=== PATIENT | female | born 1990 | race African-American/Black ===

== ENCOUNTER 2016-12-29 10:53 | Emergency (ER) | payer OTHER ==
--- NOTE | 2016-12-29 11:10 | PDOC ---
History of Present Illness - General History Source: Patient Exam Limitations: No Limitations - History of Present Illness Initial Comments: 12/29/16 11:25 The patient is a 26 year old female A1 s/p 1 month ago with no significant past medical history who presents to the emergency department with umbilical hernia pain. The patient has a hernia and was told several years ago that she would need to have surgery. She states that the hernia never used to bother her, however recently the hernia is becoming more and more painful. She states that the hernia pops out with walking or prolonged standing. Today while she was running errands she was unable to push the hernia back in so she came to the ED. The patient denies any associated nausea or vomiting. She denies any fevers or chills. <Rianna Jacobson - Last Filed: 12/29/16 14:48> <Salo Amin - Last Filed: 12/29/16 15:20> - General Chief Complaint: Pain, Acute Stated Complaint: ABD PAIN Time Seen by Provider: 12/29/16 11:09 Past History <Rianna Jacobson - Last Filed: 12/29/16 14:48> - Past Medical History Asthma: No Cancer: No Cardiac Disorders: No Diabetes: No GI Disorders: Yes (UMBILICAL HERNIA) Disorders: (ghonorrhea) HTN: No Suicide Attempt (Hx): No Seizures: No Thyroid Disease: No - Reproductive History (#): 3 Para: 1 - Immunization History Immunization Up to Date: Yes - Psycho/Social/Smoking Cessation Hx Anxiety: No Suicidal Ideation: No Smoking Status: Yes Smoking History: Never smoked Have you smoked in the past 12 months: No Number of Cigarettes Smoked Daily: 3 If you are a former smoker, when did you quit?: 2011 Information on smoking cessation initiated: No Hx Alcohol Use: No Drug/Substance Use Hx: No Substance Use Type: None Hx Substance Use Treatment: No <Salo Amin - Last Filed: 12/29/16 15:20> - Past Medical History Allergies/Adverse Reactions: Allergies Allergy/AdvReac Type Severity Reaction Status Date / Time latex Allergy Mild Rash Verified 08/05/16 11:26 Home Medications: Ambulatory Orders Ondansetron [Zofran *Odt*] 8 mg SL TID #30 od.tablet 12/29/16 Oxycodone HCl/Acetaminophen [Percocet 5-325 mg Tablet] 1 - 2 tab PO Q6H #30 tab MDD 6 12/29/16 Review of Systems - Review of Systems Able to Perform ROS?: Yes Comments:: 12/29/16 11:26 GENERAL/CONSTITUTIONAL: No fever or chills. No weakness. HEAD, EYES, EARS, NOSE AND THROAT: No change in vision. No ear pain or discharge. No sore throat. CARDIOVASCULAR: No chest pain or shortness of breath. RESPIRATORY: No cough, wheezing, or hemoptysis. GASTROINTESTINAL: +Abdominal pain. No nausea, vomiting, diarrhea or constipation. GENITOURINARY: No dysuria, frequency, or change in urination. MUSCULOSKELETAL: No joint or muscle swelling or pain. No neck or back pain. SKIN: No rash NEUROLOGIC: No headache, vertigo, loss of consciousness, or change in strength/ sensation. ENDOCRINE: No increased thirst. No abnormal weight change. HEMATOLOGIC/LYMPHATIC: No anemia, easy bleeding, or history of blood clots. ALLERGIC/IMMUNOLOGIC: No hives or skin allergy. <Rianna Jacobson - Last Filed: 12/29/16 14:48> *Physical Exam - Vital Signs Last Vital Signs Temp Pulse Resp BP Pulse Ox 98.4 F 67 20 97/65 100 12/29/16 11:04 12/29/16 11:04 12/29/16 11:04 12/29/16 11:04 12/29/16 11:04 - Physical Exam Comments: 12/29/16 11:26 GENERAL: Awake, alert, and fully oriented, in no acute distress HEAD: No signs of trauma EYES: PERRLA, EOMI, sclera anicteric, conjunctiva clear ENT: Auricles normal inspection, hearing grossly normal, nares patent, oropharynx clear without exudates. Moist mucosa NECK: Normal ROM, supple, no lymphadenopathy, JVD, or masses LUNGS: Breath sounds equal, clear to auscultation bilaterally. No wheezes, and no crackles HEART: Regular rate and rhythm, normal S1 and S2, no murmurs, rubs or gallops ABDOMEN: +Reproducible umbilical hernia. Soft, nontender, normoactive bowel sounds. No guarding, no rebound. EXTREMITIES: Normal range of motion, no edema. No clubbing or cyanosis. No cords, erythema, or tenderness NEUROLOGICAL: Cranial nerves II through XII grossly intact. Normal speech, normal gait SKIN: Warm, Dry, normal turgor, no rashes or lesions noted. <Rianna Jacobson - Last Filed: 12/29/16 14:48> - Vital Signs Last Vital Signs Temp Pulse Resp BP Pulse Ox 98.4 F 67 20 97/65 100 12/29/16 11:04 12/29/16 11:04 12/29/16 11:04 12/29/16 11:04 12/29/16 11:04 <aSlo Amin - Last Filed: 12/29/16 15:20> ED Treatment Course - LABORATORY CBC & Chemistry Diagram: 12/29/16 11:19 12/29/16 11:19 <Rianna Jacobson - Last Filed: 12/29/16 14:48> - LABORATORY CBC & Chemistry Diagram: 12/29/16 11:19 12/29/16 11:19 <Salo Amin - Last Filed: 12/29/16 15:20> Medical Decision Making - Medical Decision Making 12/29/16 14:[address] Juan Ramon Ballesteros (collections officer surgeon). Was told Dr. Angel collections officer. 12/29/16 14:48 Second call placed to Dr. Angel. Awaiting call back. <KavonRianna - Last Filed: 12/29/16 14:48> *DC/Admit/Observation/Transfer - Attestations Scribe Attestion: 12/29/16 11:26 Documentation prepared by Rianna Jacobson, acting as medical massage therapist for Salo Amin DO. <Rianna Jacobson - Last Filed: 12/29/16 14:48> - Attestations Physician Attestion: 12/29/16 11:10 I, Dr. Salo Amin, attest that this document has been prepared under my direction and personally reviewed by me in its entirety. I further attest, that it accurately reflects all work, treatment, procedures and medical decision -making performed by me. <Salo Amin - Last Filed: 12/29/16 15:20> Diagnosis at time of Disposition: Umbilical hernia without obstruction and without gangrene - Prescriptions Prescriptions: Oxycodone HCl/Acetaminophen [Percocet 5-325 mg Tablet] 1 - 2 tab PO Q6H #30 tab MDD 6 Ondansetron [Zofran *Odt*] 8 mg SL TID #30 od.tablet - Referrals Referrals: Jamel Angel MD [Staff Physician] - - Patient Instructions Printed Discharge Instructions: Abdominal Hernia Additional Instructions: Call Dr Juan Ramon Ballesteros or Dr Angel for the surgery
[2016-12-29 11:13] VITALS: TEMP 98.4; BMI 39.0
[2016-12-29] MEDS ORDERED: ONDANSETRON 4 MG/2 ML VIAL ONE (11:13)
[2016-12-29] MEDS ORDERED: ACETAMINOPHEN 500 MG TABLET (FP) PO ONE (11:23)
[2016-12-29 11:38] LABS: BASOPHIL 0.6 % (0-2.0); EOSINOPHIL 0.8 % (0-4.5); NEUTROPHILS 75.7 % (42.8-82.8); PLATELET COUNT 250 K/MM3 (134-434); RDW 15.4 % (11.6-15.6); WHITE BLOOD COUNT 7.2 K/mm3 (4.0-10.0)
[2016-12-29 12:01] LABS: INR 1.08 (0.82-1.09); PROTHROMBIN TIME (PATIENT) 11.9 SEC (9.98-11.88)
[2016-12-29 12:08] LABS: ALBUMIN 3.5 g/dl (3.4-5.0); ANION GAP 6 (8-16); BILIRUBIN,TOTAL 0.3 mg/dL (0.2-1.0); CO2 28 mmol/L (21-32); CREATININE 0.9 mg/dL (0.55-1.02); GLUCOSE,RANDOM 101 mg/dL (74-106); SGOT/AST 15 U/L (15-37); SGPT/ALT 23 U/L (12-78); TOT PROT 7.1 g/dl (6.4-8.2)
[2016-12-29 12:09] LABS: ALK PHOS 87 U/L (45-117)
[2016-12-29] MEDS ORDERED: OXYCODONE/APAP 5/325MG COMBO TABLET ONE (14:18)
[2016-12-29] MEDS ORDERED: OXYCODONE/APAP 5/325MG COMBO TABLET PO ONE (14:22)
[2016-12-29 15:12] VITALS: BP 104/61; PULSE 80
== END 2016-12-29 15:20 | disposition home or self-care (01) ==
LOC: JER 10:53
DX: K42.9 Umbilical hernia without obstruction or gangrene (principal)
CPT/HCPCS: 36415; 74177-TC; 80053; 81003; 83690; 84703; 85025; 85610; 99283-25; Q9967

== ENCOUNTER 2017-01-14 15:42 | Emergency (ER) | payer OTHER ==
[2017-01-14 15:54] VITALS: BP 139/83; PULSE 74; TEMP 98.4; BMI 38.7
--- NOTE | 2017-01-14 16:08 | PDOC ---
History of Present Illness - General History Source: Patient Exam Limitations: No Limitations - History of Present Illness Initial Comments: 01/14/17 17:09 The patient is a 26 year old female(A1), with a significant past medical history of anemia, umbilical hernia, and gonorrhea, who presents to the emergency department complaining of severe abdominal pain secondary to hernia since yesterday afternoon. The patient reports she has a ventral hernia since 2007 that is typically reducible, however since giving to her child about 2 months ago, she has not been able to push it back. The patient describes her hernia as if something were squeezing near her abdomen. The patient reports her pain is exacerbated when walking or standing. The patient reports associated nausea and vomiting, but denies any diarrhea or constipation. She reports she presented to the ED 2-3 weeks ago with a similar pain, during which blood work was obtained The patient reports she is scheduled for a surgery with Dr. Dunham, during the second week of January, however, her pain brought her to come into the ED today. The patient report decreased appetite secondary to pain and being unable to tolerate anything p.o. The patient denies any fever or chills. Allergies: Latex Past Surgical History: Social History: Former smoker. Denies alcohol or drug use. PCP: Dr. Angel Surgeon: Dr. Dunham <Mary Jo Morrow - Last Filed: 01/14/17 17:19> - General History Source: Patient Exam Limitations: No Limitations <Melony Ocampo - Last Filed: 01/17/17 09:54> - General Chief Complaint: Pain, Acute Stated Complaint: ABDOMINAL PAIN Time Seen by Provider: 01/14/17 16:07 Past History <Mary Jo Morrow - Last Filed: 01/14/17 17:19> - Past Medical History Anemia: Yes Asthma: No Cancer: No Cardiac Disorders: No CVA: No COPD: No CHF: No Dementia: No Diabetes: No GI Disorders: Yes (UMBILICAL HERNIA) Disorders: Yes (ghonorrhea) HTN: No Hypercholesterolemia: No Liver Disease: No Suicide Attempt (Hx): No Seizures: No Thyroid Disease: No - Surgical History Abdominal Surgery: No Appendectomy: No Cardiac Surgery: No Cholecystectomy: No Lung Surgery: No Neurologic Surgery: No Orthopedic Surgery: No - Reproductive History (#): 3 Para: 1 - Immunization History Immunization Up to Date: Yes - Psycho/Social/Smoking Cessation Hx Anxiety: No Suicidal Ideation: No Smoking Status: Yes Smoking History: Never smoked Have you smoked in the past 12 months: No Number of Cigarettes Smoked Daily: 3 If you are a former smoker, when did you quit?: 2011 Hx Alcohol Use: No Drug/Substance Use Hx: No Substance Use Type: None Hx Substance Use Treatment: No <Melony Ocampo - Last Filed: 01/17/17 09:54> - Past Medical History Allergies/Adverse Reactions: Allergies Allergy/AdvReac Type Severity Reaction Status Date / Time latex Allergy Mild Rash Verified 01/14/17 15:52 Home Medications: Ambulatory Orders Lidocaine 5% Patch [Lidoderm Patch -] 1 patch TP DAILY PRN #30 patch 01/14/17 NK [No Known Home Medication] 01/14/17 Review of Systems - Review of Systems Able to Perform ROS?: Yes Comments:: 01/14/17 17:09 GENERAL/CONSTITUTIONAL: No: fever, chills, weakness, loss of appetite. HEAD, EYES, EARS, NOSE AND THROAT: No: change in vision, ear pain, discharge, sore throat, throat swelling. CARDIOVASCULAR: No: chest pain, lightheadedness, palpitations, syncope RESPIRATORY: No: cough, shortness of breath, wheezing, hemoptysis, stridor. GASTROINTESTINAL: Yes: +abdominal pain, +nausea, +vomiting. No: diarrhea, rectal bleeding, constipation. GENITOURINARY: No: dysuria, hematuria, frequency, urgency, flank pain. MUSCULOSKELETAL: No: back pain, neck pain, joint pain, muscle swelling or pain SKIN AND BREASTS: No: lesions, pallor, rash or easy bruising. NEUROLOGIC: No: headache, vertigo, paresthesias, weakness ENDOCRINE: No: unexplained weight gain or loss HEMATOLOGIC/LYMPHATIC: No: anemia, easy bleeding, swelling nodes <Morrow,Giomilsy - Last Filed: 01/14/17 17:19> *Physical Exam - Vital Signs Last Vital Signs Temp Pulse Resp BP Pulse Ox 98.4 F 74 18 139/83 100 01/14/17 15:52 01/14/17 15:52 01/14/17 15:52 01/14/17 15:52 01/14/17 15:52 - Physical Exam Comments: 01/14/17 17:10 GENERAL: Patient appears uncomfortable and tearful.. HEAD: Normal with no signs of trauma. EYES: PERRLA, EOMI, sclera anicteric, conjunctiva clear. ENT: Ears normal, nares patent, oropharynx clear without exudates. Moist mucous membranes. NECK: Normal range of motion, supple without lymphadenopathy, JVD, or masses. LUNGS: Breath sounds equal, clear to auscultation bilaterally. No wheezes, and no crackles. HEART: Regular rate and rhythm, normal S1 and S2 without murmur, rub or gallop. ABDOMEN: Incarcerated hernia. Very tender to palpation. Soft, normoactive bowel sounds. No guarding, no rebound. EXTREMITIES: Normal range of motion, no edema. No clubbing or cyanosis. No erythema, or tenderness. NEUROLOGICAL: Cranial nerves II through XII grossly intact. Normal speech. No focal neurological deficits. MUSCULOSKELETAL: Back non-tender to palpation, no CVA tenderness SKIN: Warm, Dry, normal turgor, no rashes or lesions noted. <Mary Jo Morrow - Last Filed: 01/14/17 17:19> - Vital Signs Last Vital Signs Temp Pulse Resp BP Pulse Ox 98.4 F 74 18 139/83 100 01/14/17 15:52 01/14/17 15:52 01/14/17 15:52 01/14/17 15:52 01/14/17 15:52 <Melony Ocampo - Last Filed: 01/17/17 09:54> ED Treatment Course - LABORATORY CBC & Chemistry Diagram: 01/14/17 16:50 01/14/17 16:50 - ADDITIONAL ORDERS Additional order review: 01/14/17 16:50 RBC 4.42 MCV 85.3 MCHC 31.5 L RDW 15.9 H MPV 8.5 Neutrophils % 89.2 H Lymphocytes % 7.4 L D Monocytes % 2.6 L Eosinophils % 0.7 Basophils % 0.1 - Medications Given in the ED: ED Medications Discontinued Medications Generic Name Dose Route Start Last Admin Trade Name Freq PRN Reason Stop Dose Admin Hydromorphone HCl 1 mg 01/14/17 16:38 01/14/17 16:52 Dilaudid Injection - IVPB 01/14/17 16:39 1 mg NOW ONE Administration <Mary Jo Morrow - Last Filed: 01/14/17 17:19> - LABORATORY CBC & Chemistry Diagram: 01/14/17 16:50 01/14/17 16:50 <Melony Ocampo - Last Filed: 01/17/17 09:54> Medical Decision Making - Medical Decision Making 01/14/17 16:08 A portion of this note was documented by scribe services under my direction. I have reviewed the details of the note, within reason, and agree with the documentation with the following case summary and management plan written by me. Nursing documentation reviewed and incorporated into medical decision making 01/14/17 16:40 This is a 26-year-old female with a history of ventral hernia who presents to the emergency department with a complaint of severe pain at the site of her hernia. Patient states she has a history of a ventral hernia which is typically reducible. Beginning yesterday her hernia has been non reducible No fevers or chills (+) nausea and vomiting 01/14/17 16:[address] Roly Armenta states, patient should be given versed to relax her and help the hernia reduce Pt will need to have CT of the abdomen and pelvis Will re assess Pt states she was at [facility] yesterday, had a CT which demonstrated fat containing hernia Pt frustrated that she has not already had her surgery Call placed to Dr Roly Armenta states, pt is scheduled for the OR on 01/17 Pt states the hernia self reduced she feels a bit better Will discharge to home pt asked to take Tylenol with codein for pain and try to wear an abdominal girdle Return to the ER for any other concerns or complaints <Melony Ocampo - Last Filed: 01/17/17 09:54> *DC/Admit/Observation/Transfer - Attestations Scribe Attestion: 01/14/17 17:10 Documentation prepared by Mary Jo Morrow, acting as mobile paramedical examiner for Melony Ocampo MD. <Mary Jo Morrow - Last Filed: 01/14/17 17:19> - Discharge Dispostion Admit: No <Melony Ocampo - Last Filed: 01/17/17 09:54> Diagnosis at time of Disposition: Ventral hernia Qualifiers: Obstruction and gangrene presence: without obstruction or gangrene Qualified Code(s): K43.9 - Ventral hernia without obstruction or gangrene - Discharge Dispostion Disposition: HOME Condition at time of disposition: Stable - Prescriptions Prescriptions: Lidocaine 5% Patch [Lidoderm Patch -] 1 patch TP DAILY PRN #30 patch PRN Reason: Pain - Referrals Referrals: Sobeida Chavez MD [Primary Care Provider] - Aguila Dunham MD [Staff Physician] - - Patient Instructions Printed Discharge Instructions: DI for Ventral Hernia Additional Instructions: Please take Tylenol #3 for pain Please take benadry as needed for pain You can also use lidoderm patches for pain YOUR SURGERY IS IN 3 DAYS
[2017-01-14] MEDS ORDERED: ACETAMINOPHEN INJECTION 0 ML IVPB ONE (16:55)
[2017-01-14 17:00] LABS: BASOPHIL 0.1 % (0-2.0); EOSINOPHIL 0.7 % (0-4.5); MCH 26.8 pg (25.7-33.7); MCHC 31.5 g/dl (32.0-36.0); MEAN CELL VOLUME 85.3 fl (80-96); MEAN PLT VOLUME 8.5 fl (7.5-11.1); NEUTROPHILS 89.2 % (42.8-82.8); PLATELET COUNT 268 K/MM3 (134-434); RDW 15.9 % (11.6-15.6); WHITE BLOOD COUNT 10.7 K/mm3 (4.0-10.0)
[2017-01-14 17:16] LABS: URINE APPEARANCE CLEAR; URINE BILIRUBIN NEGATIVE (NEGATIVE); URINE BLOOD NEGATIVE (NEGATIVE); URINE COLOR YELLOW; URINE GLUCOSE (UA) NEGATIVE (NEGATIVE); URINE KETONE NEGATIVE (NEGATIVE); URINE NITRITE NEGATIVE (NEGATIVE); URINE PROTEIN NEGATIVE (NEGATIVE); URINE UROBILINOGEN NEGATIVE E.U./dl (0.2-1.0)
[2017-01-14 17:21] LABS: URINE LEUK ESTERASE TRACE (NEGATIVE)
[2017-01-14 17:22] LABS: URINE HYALINE CAST 1 /lpf; URINE MUCUS FEW; URINE RBC 1 /hpf (0-3); URINE WBC 2 /hpf (3-5)
[2017-01-14 17:28] LABS: ALBUMIN 4.1 g/dl (3.4-5.0); ALK PHOS 82 U/L (45-117); ANION GAP 12 (8-16); BILIRUBIN,TOTAL 0.7 mg/dL (0.2-1.0); CO2 25 mmol/L (21-32); GLUCOSE,RANDOM 96 mg/dL (74-106); SGOT/AST 11 U/L (15-37); SGPT/ALT 22 U/L (12-78); TOT PROT 7.9 g/dl (6.4-8.2)
[2017-01-14] MEDS: HYDROmorphone HCL CARPU-JECT 1 MG/1 ML DISP.SYRIN IVPB ONE ×2 (17:34→18:45)
[2017-01-14] MEDS: ACETAMINOPHEN 1000 MG/100 ML VIAL (NON FORMULARY) IVPB ONE ×2 (17:34→17:40)
[2017-01-14] MEDS ORDERED: HYDROmorphone HCL CARPU-JECT 1 MG/1 ML DISP.SYRIN ONE (17:35)
[2017-01-14] MEDS ORDERED: diphenhydrAMINE HCL 25 MG CAPSULE (FP) PO ONE (18:21)
== END 2017-01-14 19:50 | disposition home or self-care (01) ==
LOC: JER 15:42
PROC: 3E033GC Introduction of Other Therapeutic Substance into Peripheral Vein, Percutaneous Approach (ICD-10-PCS; principal; 2017-01-14)
DX: K43.9 Ventral hernia without obstruction or gangrene (principal); Z86.2 Personal history of diseases of the blood and blood-forming organs and certain disorders involving the immune mechanism
CPT/HCPCS: 36415; 80053; 81003; 81015; 83605; 84703; 85025; 87086; 96374; 99283-25

== ENCOUNTER 2017-01-17 11:04 | Day surgery (SDC) | payer OTHER ==
[2017-01-12 19:16] VITALS: BMI 41.6
[2017-01-17] MEDS ORDERED: SUCCINYLCHOLINE CHLORIDE 200 MG/10 ML VIAL ONE (12:36)
[2017-01-17] MEDS ORDERED: PROPOFOL 20 ML ONE ×2 (12:36)
[2017-01-17] MEDS ORDERED: MIDAZOLAM HCL 2 MG/2 ML SINGLE DOSE VIAL ONE (12:37)
[2017-01-17] MEDS ORDERED: ROCURONIUM BROMIDE 50 MG/5 ML VIAL ONE ×2 (12:37→14:11)
--- NOTE | 2017-01-17 12:44 | HP ---
History & Physical Update - History History: No Change - Physical Physical: No Change - Assessment Assessment: No Change - Plan Plan: No Change
[2017-01-17] MEDS ORDERED: ceFAZolin SODIUM 1 GM VIAL ONE (13:14)
[2017-01-17] MEDS ORDERED: ceFAZolin SODIUM 1 GM VIAL IVPB ONE (13:18)
[2017-01-17] MEDS ORDERED: KETOROLAC TROMETHAMINE 30 MG/1 ML VIAL ONE (13:19)
[2017-01-17] MEDS ORDERED: DEXAMETHASONE SOD PHOSPHATE 4 MG/1 ML VIAL ONE (13:19)
[2017-01-17] MEDS ORDERED: ePHEDrine SULFATE 50 MG/1 ML AMPULE ONE (13:20)
[2017-01-17] MEDS ORDERED: BUPIVACAINE HCL/PF 0.5% (5MG/ML) 10 ML VIAL IJ ONE (14:36)
[2017-01-17] MEDS ORDERED: METOPROLOL TARTRATE 5 MG/5 ML VIAL ONE (15:03)
[2017-01-17] MEDS ORDERED: NEOSTIGMINE METHYLSULFATE 0.5 MG/ML - 10 ML MDV ONE (15:48)
[2017-01-17] MEDS ORDERED: GLYCOPYRROLATE 0.2 MG/1 ML VIAL ONE (15:49)
[2017-01-17] MEDS ORDERED: PROMETHAZINE HCL 25 MG/1 ML VIAL IVPUSH PRN (17:19)
[2017-01-17] MEDS ORDERED: oxyCODONE HCL 5 MG TABLET PO PRN ×3 (17:19→17:30)
[2017-01-17] MEDS ORDERED: ACETAMINOPHEN 1000 MG/100 ML VIAL (NON FORMULARY) IVPB ONE (17:19)
--- NOTE | 2017-01-17 17:28 | OP ---
Operative Note - Note: Operative Date: 01/17/17 Pre-Operative Diagnosis: ventral hernia Operation: Robotic laparoscopic ventral hernia repair with mesh Post-Operative Diagnosis: Same as Pre-op Surgeon: Aguila Dunham Ethylene Plant Operator: Laura Dick Anesthesiologist/RECEPTION: Hafsa Champagne Anesthesia: General Estimated Blood Loss (mls): 100 Fluid Volume Replaced (mls): 1,800 Operative Report Dictated: Yes
--- NOTE | 2017-01-17 17:29 | SURG ---
Surgery Metal Stud Framer Note Metal Stud Framer: Laura Dick PA-C Date of Service: 01/17/17 Diagnosis: ventral hernia Procedure: Robotic laparoscopic ventral hernia repair with mesh I was present for the entirety of the operative procedure. For further detail, please refer to operative report. Visit type - Case Type Case Type: Scheduled Admission - Emergency Emergency Visit: No - New patient This patient is new to me today: Yes Date on this admission: 01/17/17 - Critical Care Critical Care patient: No
[2017-01-17] MEDS ORDERED: ONDANSETRON 4 MG/2 ML VIAL IVPB PRN (17:30)
[2017-01-17] MEDS ORDERED: LACTATED RINGERS SOLUTION 1,000 ML IV SCH (17:30)
[2017-01-17] MEDS ORDERED: ACETAMINOPHEN INJECTION 100 ML IVPB ONE (17:39)
[2017-01-17] MEDS: HYDROmorphone HCL CARPU-JECT 1 MG/1 ML DISP.SYRIN IVPUSH PRN ×2 (18:15→18:25)
[2017-01-17] MEDS ORDERED: HYDROmorphone HCL CARPU-JECT 2 MG/1 ML DISP.SYRIN ONE (18:20)
[2017-01-17] MEDS ORDERED: PROMETHAZINE HCL 25 MG/1 ML VIAL IVPB PRN (22:30)
[2017-01-17] MEDS ORDERED: ONDANSETRON 4 MG/2 ML VIAL IVPUSH PRN (22:30)
[2017-01-17] MEDS ORDERED: HYDROmorphone *PCA* 10MG/50ML DISP.SYRIN PCA SCH ×2 (22:30→23:15)
[2017-01-18] MEDS: ACETAMINOPHEN 325 MG TABLET (FP) PO PRN ×2 (01:37→10:42)
[2017-01-18 08:25] VITALS: BP 102/60; PULSE 71; TEMP 98.4
--- NOTE | 2017-01-18 08:30 | PN ---
Progress Note (short form) - Note Progress Note: POD #1 - s/p robotic ventral hernia repair under general anesthesia with dilaudid AUTOMATIC DATA PROCESSING PLANNER for postop pain management. Pt. doing well, resting comfortably in bed. No complaints. Good pain control. Pt. to be discharged later today, so will discontinue AUTOMATIC DATA PROCESSING PLANNER and order oxycodone for further pain control.
--- NOTE | 2017-01-18 09:18 | PN ---
Progress Note (short form) - Note Progress Note: Patient seen and examined. Patient states she had pain overnight and did not understand to use her POULTRY PROCESSOR. She has not had much oral intake yet. She has been OOB, is urinating without issue, and passing gas. She denies fever, chills, nausea, vomiting. Last Vital Signs Temp Pulse Resp BP Pulse Ox 98.4 F 71 20 102/60 98 01/18/17 08:00 01/18/17 08:06 01/18/17 08:06 01/18/17 08:06 01/17/17 20:03 Exam: Gen: NAD Cardio: RRR Resp: CTA Abd: soft, nondistended, tender to palp at port sites, incisions clean/dry/ intact with Dermabond Problem List - Problems (1) Ventral hernia Assessment/Plan: POD#1 s/p robotic laparoscopic ventral hernia repair with mesh Patient will have clears now, advance diet as tolerated Pain control- DC POULTRY PROCESSOR, Ofirmev 1000mg IV now, Oxycodone 5 or 10mg PRN, will be sent home with Rx for Percocet OOB/Ambulate Code(s): K43.9 - VENTRAL HERNIA WITHOUT OBSTRUCTION OR GANGRENE Qualifiers: Obstruction and gangrene presence: without obstruction or gangrene Qualified Code(s): K43.9 - Ventral hernia without obstruction or gangrene
[2017-01-18] MEDS: ACETAMINOPHEN 1000 MG/100 ML VIAL (NON FORMULARY) IVPB ONE ×2 (10:31→10:38)
--- NOTE | 2017-01-18 18:15 | OP ---
DATE OF OPERATION: 01/17/2017 PROCEDURE: Robotic assisted laparoscopic ventral hernia repair with mesh. PREOPERATIVE DIAGNOSIS: Umbilical hernia. POSTOPERATIVE DIAGNOSIS: Multiple ventral hernias (umbilical and epigastric hernias). SURGEON: Aguila Dunham M.D. CAMPUS ADMINISTRATOR: Christopher Avilez ANESTHESIA: General endotracheal anesthesia. FINDINGS AND PROCEDURE: This is a 26-year-old female presents with chronic intermittent abdominal pain from a chronically incarcerated umbilical hernia. On physical exam, patient has 4/4 nonreducible bulge just above the umbilicus with mild tenderness. Patient had multiple visits to the emergency department due to pain , and preoperative CT scan of the abdomen and pelvis revealed ventral hernia containing incarcerated preperitoneal fat. So patient was advised elective repair of the hernia, and consent was obtained after discussing the risks, benefits, and alternatives to the procedure. Patient was brought to the operating room and placed in supine position. General endotracheal anesthesia was administered. The abdomen was prepped and draped in the usual sterile fashion. A roll was then placed in the patient's left flank. Using 0.5% Marcaine, local anesthesia was administered to the proposed incision sites. The peritoneal cavity was entered via an 8-mm incision at the left subcostal region of the anterior axillary line. Using the Veress needle technique, pneumoperitoneum was established. This was followed by insertion of 8-mm port, and insertion of the 30-degree, 3-D laparoscope. Peritoneal cavity was carefully inspected and was noted to be free inadvertent injury. The patient was then slightly tilted to the right side, and the patient was noted to have 2 hernias, 1 at the umbilicus (3 cm) and 1 at the epigastric region (4 cm). The epigastric hernia contained partially incarcerated omentum. Two 8-mm ports were inserted, one at the level of the umbilicus at the posterior axillary line, and one at the left lower quadrant at the level of anterior axillary line, about 8 mm away from each other. The scope was then transferred to the middle port. The target organ was set, and the robotic arms were docked. A fenestrated bipolar forceps was inserted at the left lower quadrant port, and the wrist juan connected to monopolar cautery was inserted at the left upper quadrant and left subcostal port. At this time, I scrubbed out and commenced the console part of the procedure. The parietal peritoneum was scored at about 5 cm away from the umbilical hernia defect, and extended superiorly towards the falciform ligament and inferiorly towards about 5 cm away from below the umbilical defect. Peritoneal pocket was made and during the procedure due to the patient's very thin parietal peritoneum, multiple tears of the peritoneum was created. This dissection was carried laterally towards the other side of the midline, about 5 cm from the defects. Superiorly the incarcerated preperitoneal fat was taken down, for both umbilical and epigastric hernias. The umbilical area was noted to contain multiple small defects, about 2 of them around the umbilicus. After the incarcerated preperitoneal fat was taken down, the defects were closed with continuous V-Loc number 1 nonabsorbable sutures, to include partial apposition of the diastasis recti. Two Progrip meshes, one 10 x 15 and one 9 x 10 cm meshes were deployed, the 10 x 15 was deployed towards the epigastric hernia, and the 10 x 9 cm mesh was deployed at the level of the umbilicus, with the 2 meshes overlapping each other in the middle in between the 2 defects. After deployment was deemed satisfactory, the parietal peritoneum was then closed with continuos V-Loc 2-0 absorbable sutures. The multiple defects were also closed with V-Loc 2-0 absorbable sutures to close the parietal peritoneum and cover the mesh to avoid exposure to the small bowel. The bleeding, which was about 100 cc, was suctioned at the gutter , the right perihepatic gutter, as well as the pelvis. After it was determined that the repair was satisfactory and no active bleeding or inadvertent bowel injury existed, the instruments were removed and the robotic arms were undocked. The pneumoperitoneum was evacuated, and the ports were removed. The wounds were closed with subcuticular Biosyn 4-0 sutures. An abdominal binder was applied. Patient was successfully extubated and transferred to the post anesthesia care unit in satisfactory condition. Estimated blood loss was about 100 mL. Wound class clean. The patient received 2 g of Ancef prior to the start of the procedure. Pinky [id number] MTDD
== END 2017-01-18 01:45 | disposition home or self-care (01) ==
LOC: JASU-SURG 11:04 → J6S 19:58 → JASU-SURG 01-18 01:45
PROVIDERS: ATTEND Surgery
PROC: 0WUF4JZ Supplement Abdominal Wall with Synthetic Substitute, Percutaneous Endoscopic Approach (ICD-10-PCS; principal; 2017-01-17 12:30)
DX: K43.9 Ventral hernia without obstruction or gangrene (principal)
CPT/HCPCS: 49652; S2900; 84703; 94760

== ENCOUNTER 2018-07-18 17:14 | Emergency (ER) | payer OTHER ==
--- NOTE | 2018-07-18 17:22 | PDOC ---
Rapid Medical Evaluation Time Seen by Provider: 07/18/18 17:20 Medical Evaluation: Allergies Allergy/AdvReac Type Severity Reaction Status Date / Time latex Allergy Mild Rash Verified 01/17/17 11:47 07/18/18 17:20 I have performed a brief in-person evaluation of this patient. The patient presents with a chief complaint of:vaginal discharge, vaginal itching , no bleeding Pertinent physical exam findings:none I have ordered the following:urine preg, UA, The patient will proceed to the ED for further evaluation.
[2018-07-18 17:24] VITALS: BP 109/62; PULSE 73; TEMP 98.3; BMI 32.3
--- NOTE | 2018-07-18 17:42 | PDOC ---
History of Present Illness <Nilesh Lewis - Last Filed: 07/18/18 21:11> - General History Source: Patient Exam Limitations: No Limitations - History of Present Illness Travel History: No Initial Comments: 07/18/18 18:30 Patient came for evaluation of persistent vaginal drainage and itching. was treated for bacterial vaginosis a few weeks ago but did not complete the course of MetroGel, or Monistat to treat presumed yeast infection in addition. Patient states has continued her unprotected sexual activity with same partner who has not complained of any drainage, testicular pain, or lesions. Has never had a sexually transmitted disease including gonorrhea, chlamydia, or herpes. Is uncertain as to her status area has requested HIV and STD testing here and will complete a beta hCG as she states multiple episodes of that was undetected with urine hCG evaluation. Timing/Duration: reports: constant, getting worse Quality: reports: moderate Abdominal Pain Onset Location: reports: suprapubic Pain Radiation: reports: no radiation Alleviating Factors: improves with: None <Sofía Zaman - Last Filed: 07/19/18 16:53> - General Chief Complaint: Vaginal Sxs Stated Complaint: VAGINAL SXS Time Seen by Provider: 07/18/18 17:20 Past History <Nilesh Lewis - Last Filed: 07/18/18 21:11> - Travel Traveled outside of the country in the last 30 days: No Close contact w/someone who was outside of country & ill: No - Past Medical History Anemia: Yes Asthma: No Cancer: No Cardiac Disorders: No CVA: No COPD: No CHF: No Dementia: No Diabetes: No GI Disorders: Yes (UMBILICAL HERNIA) Disorders: Yes (ghonorrhea) HTN: No Hypercholesterolemia: No Liver Disease: No Seizures: No Thyroid Disease: No - Surgical History Abdominal Surgery: No Appendectomy: No Cardiac Surgery: No Cholecystectomy: No Lung Surgery: No Neurologic Surgery: No Orthopedic Surgery: No - Reproductive History (#): 3 Para: 1 - Immunization History Immunization Up to Date: Yes - Suicide/Smoking/Psychosocial Hx Smoking Status: Yes Smoking History: Never smoked Have you smoked in the past 12 months: No Number of Cigarettes Smoked Daily: 3 If you are a former smoker, when did you quit?: 2011 Information on smoking cessation initiated: Yes 'Breaking Loose' booklet given: 07/18/18 Hx Alcohol Use: No Drug/Substance Use Hx: No Substance Use Type: None Hx Substance Use Treatment: No <Sofía Zaman - Last Filed: 07/19/18 16:53> - Past Medical History Allergies/Adverse Reactions: Allergies Allergy/AdvReac Type Severity Reaction Status Date / Time latex Allergy Mild Rash Verified 07/18/18 17:24 Home Medications: Ambulatory Orders metroNIDAZOLE 0.75% VAG. GEL [Metrogel 0.75% *Vaginal Gel* -] 1 applic VG HS #1 tube 07/18/18 Abd/GI Specific PMHX - Complaint Specific PMHX Colitis: No Diverticulitis: No Gall Bladder Disease: No GERD: No Hepatitis: No Irritable Bowel Synd (IBS): No Pancreatitis: No GI Ulcer Disease: No <Sofía Zaman - Last Filed: 07/19/18 16:53> Review of Systems - Review of Systems Able to Perform ROS?: Yes Is the patient limited Telugu proficient: Yes Constitutional: Yes: See HPI. No: Symptoms Reported, Chills, Fever, Malaise HEENTM: Yes: See HPI. No: Symptoms Reported ABD/GI: Yes: Symptoms Reported, See HPI, Abdominal cramping. No: Nausea, Vomiting : Yes: Symptoms Reported, See HPI, Burning, Discharge (thin whitish foul- smelling/fishy odor discharge, consistent with same type of discharge experienced with bacterial vaginosis and she did not complete course of treatment). No: Frequency Musculoskeletal: No: Symptoms Reported Integumentary: Yes: Symptoms Reported, See HPI, Erythema, Pruritus, Rash Neurological: No: Symptoms reported Psychiatric: No: Anxiety All Other Systems: Reviewed and Negative <Sofía Zaman - Last Filed: 07/19/18 16:53> *Physical Exam - Vital Signs Last Vital Signs Temp Pulse Resp BP Pulse Ox 98.3 F 73 17 109/62 100 07/18/18 17:21 07/18/18 17:21 07/18/18 17:21 07/18/18 17:21 07/18/18 17:21 <Nilesh Lewis - Last Filed: 07/18/18 21:11> - Vital Signs Last Vital Signs Temp Pulse Resp BP Pulse Ox 98.3 F 73 17 109/62 100 07/18/18 17:21 07/18/18 17:21 07/18/18 17:21 07/18/18 17:21 07/18/18 17:21 - Physical Exam General Appearance: Yes: Nourished, Appropriately Dressed, Apparent Distress, Mild Distress HEENT: positive: SHARON, Normal ENT Inspection, TMs Normal, Pharynx Normal Neck: positive: Supple. negative: Tender, Lymphadenopathy (R), Lymphadenopathy (L) Respiratory/Chest: positive: Lungs Clear, Normal Breath Sounds Female Pelvic Exam: positive: normal external exam, discharge (moderate amount of thin grayish white foul-smelling/fishy smelling discharge. Completed as patient has significant tenderness to her vaginal wall and labia. No lesions, ulcerations, or masses noted.) Gastrointestinal/Abdominal: positive: Normal Bowel Sounds, Soft. negative: Tender, Distended, Guarding, Rebound Musculoskeletal: positive: Normal Inspection Extremity: positive: Normal Capillary Refill, Normal Range of Motion Integumentary: positive: Normal Color Neurologic: positive: senior qa tester II-XII NML intact, Fully Oriented, Alert, Normal Mood/ Affect, Normal Response, Motor Strength 5/5 <Sofía Zaman - Last Filed: 07/19/18 16:53> ED Treatment Course - ADDITIONAL ORDERS Additional order review: Laboratory Results 07/18/18 07/18/18 18:30 17:45 Beta HCG, Quant < 1.0 Urine Color Yellow Urine Appearance Clear Urine pH 5.0 Ur Specific Crawford 1.025 Urine Protein Negative Urine Glucose (UA) Negative Urine Ketones Negative Urine Blood Negative Urine Nitrite Negative Urine Bilirubin Negative Urine Urobilinogen Negative Ur Leukocyte Esterase Negative Urine HCG, Qual Negative - Medications Given in the ED: ED Medications Discontinued Medications Generic Name Dose Route Start Last Admin Trade Name Freq PRN Reason Stop Dose Admin Azithromycin 1,000 mg 07/18/18 19:51 07/18/18 20:48 Zithromax - PO 07/18/18 19:52 1,000 mg ONCE ONE Administration Ceftriaxone Sodium 250 mg 07/18/18 19:51 07/18/18 20:47 Rocephin - IM 07/18/18 19:52 250 mg ONCE ONE Administration Fluconazole 150 mg 07/18/18 19:11 07/18/18 19:17 Diflucan - PO 07/18/18 19:12 150 mg ONCE ONE Administration <Nilesh Lewis - Last Filed: 07/18/18 21:11> Progress Note - Progress Note Progress Note: Persistent bacterial vaginosis, and possible exposure to sexually transmitted diseases. We will treat with ceftriaxone, azithromycin, and 1 dose of Diflucan. Also prescription for MetroGel vaginal cream has been transmitted <Sofía Zaman - Last Filed: 07/19/18 16:53> *DC/Admit/Observation/Transfer <JoshuaNilesh Brittney - Last Filed: 07/18/18 21:11> - Discharge Dispostion Decision to Admit order: No <Sofía Zaman - Last Filed: 07/19/18 16:53> Diagnosis at time of Disposition: Bacterial vaginosis, Possible exposure to STD - Discharge Dispostion Disposition: HOME Condition at time of disposition: Stable - Prescriptions Prescriptions: metroNIDAZOLE 0.75% VAG. GEL [Metrogel 0.75% *Vaginal Gel* -] 1 applic VG HS #1 tube - Referrals Referrals: Esther Sanchez [Primary Care Provider] - - Patient Instructions Printed Discharge Instructions: DI for Vaginal Yeast Infection, DI for Vaginal Discharge Additional Instructions: You been treated today with azithromycin 1 g by mouth for treatment of presumed chlamydia You have been treated with Rocephin 250 mg injection for treatment of presumned gonorrhea The prescription for MetroGel vaginal cream has been sent to pharmacy and take as directed, ensuring to complete course. You has also been given 1 dose of Diflucan for treatment of vaginal candidal infection. The syphilis test, gonorrhea and chlamydia testing will not be completed for the next few days. You may call and leave message for return phone call with lab results. Be sure to be clear with your name, birthdate, and phone number Always use condoms with the partners Followup with [employer] [facility] or [facility]D in one week for reevaluation and retesting. - Post Discharge Activity Forms/Work/School Notes: Back to Work
[2018-07-18 18:27] LABS: URINE APPEARANCE CLEAR; URINE BILIRUBIN NEGATIVE (<2.0 mg/dL); URINE COLOR YELLOW; URINE GLUCOSE (UA) NEGATIVE (NEGATIVE); URINE KETONE NEGATIVE (NEGATIVE); URINE LEUK ESTERASE NEGATIVE (NEGATIVE); URINE NITRITE NEGATIVE (NEGATIVE); URINE PROTEIN NEGATIVE (NEGATIVE); URINE UROBILINOGEN NEGATIVE mg/dL (0.2-1.0)
[2018-07-18 19:01] LABS: HCG,QUALITATIVE URINE Negative
[2018-07-18] MEDS ORDERED: FLUCONAZOLE 50 MG TABLET PO ONE (19:11)
[2018-07-18] MEDS ORDERED: FLUCONAZOLE 100 MG TABLET (UD) ONE (19:14)
[2018-07-18] MEDS ORDERED: AZITHROMYCIN 250 MG TABLET PO ONE (19:51)
[2018-07-18] MEDS ORDERED: AZITHROMYCIN 500 MG TABLET ONE (20:43)
== END 2018-07-18 21:12 | disposition home or self-care (01) ==
LOC: JERFT 17:14
DX: Z20.2 Contact with and (suspected) exposure to infections with a predominantly sexual mode of transmission (principal); N76.0 Acute vaginitis
CPT/HCPCS: 36415; 81003; 84702; 84703; 86593; 87389; 99281-25

== ENCOUNTER 2018-08-08 13:17 | Emergency (ER) | payer SELFPAY ==
[2018-08-08 13:26] VITALS: BP 99/55; PULSE 76; TEMP 98.9; BMI 45.4
--- NOTE | 2018-08-08 14:36 | PDOC ---
History of Present Illness - General Chief Complaint: Cold Symptoms Stated Complaint: COUGH,CHILLS,VAGINAL DISCHARGE Time Seen by Provider: 08/08/18 14:17 - History of Present Illness Initial Comments: 08/08/18 14:41 c/o runny nose dry cough for 3 days no fever Past History - Past Medical History Allergies/Adverse Reactions: Allergies Allergy/AdvReac Type Severity Reaction Status Date / Time latex Allergy Mild Rash Verified 07/18/18 17:24 Home Medications: Ambulatory Orders metroNIDAZOLE 0.75% VAG. GEL [Metrogel 0.75% *Vaginal Gel* -] 1 applic VG HS #1 tube 07/18/18 Anemia: Yes Asthma: No Cancer: No Cardiac Disorders: No CVA: No COPD: No CHF: No Dementia: No Diabetes: No GI Disorders: Yes (UMBILICAL HERNIA) Disorders: Yes (ghonorrhea) HTN: No Hypercholesterolemia: No Liver Disease: No Seizures: No Thyroid Disease: No - Surgical History Abdominal Surgery: No Appendectomy: No Cardiac Surgery: No Cholecystectomy: No Lung Surgery: No Neurologic Surgery: No Orthopedic Surgery: No - Reproductive History (#): 3 Para: 1 - Immunization History Immunization Up to Date: Yes - Suicide/Smoking/Psychosocial Hx Smoking Status: Yes Smoking History: Current every day smoker Have you smoked in the past 12 months: No Number of Cigarettes Smoked Daily: 3 If you are a former smoker, when did you quit?: 2011 Information on smoking cessation initiated: No 'Breaking Loose' booklet given: 07/18/18 Hx Alcohol Use: No Drug/Substance Use Hx: No Substance Use Type: None Hx Substance Use Treatment: No *Physical Exam - Vital Signs Last Vital Signs Temp Pulse Resp BP Pulse Ox 98.9 F 76 18 99/55 L 98 08/08/18 13:23 08/08/18 13:23 08/08/18 13:23 08/08/18 13:23 08/08/18 13:23 - Physical Exam General Appearance: Yes: Nourished, Appropriately Dressed HEENT: positive: EOMI, SHARON Neck: negative: Tender Respiratory/Chest: positive: Lungs Clear, Normal Breath Sounds. negative: Chest Tender *DC/Admit/Observation/Transfer Diagnosis at time of Disposition: Rhinorrhea - Discharge Dispostion Disposition: HOME Condition at time of disposition: Good - Referrals Referrals: Esther Sanchez [Primary Care Provider] - - Patient Instructions Printed Discharge Instructions: DI for Common Cold Additional Instructions: good hand washing increase vitamin C such a s orange juice, oranges you can try any over the counter cold medicine such as dayquil follow with your doctor in 2 days if any worse - Post Discharge Activity
== END 2018-08-08 14:55 | disposition home or self-care (01) ==
LOC: JERFT 13:17
DX: J34.89 Other specified disorders of nose and nasal sinuses (principal); F17.210 Nicotine dependence, cigarettes, uncomplicated
CPT/HCPCS: 99281-25